=== PATIENT | female | born 1965 | race Caucasian/White ===

== ENCOUNTER 2019-11-09 16:47 | Emergency (ER) | payer SELFPAY ==
[2019-11-09 17:45] VITALS: BP 117/83
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
== END 2019-11-09 18:14 | disposition home health service (06) ==
LOC: UCCORT 16:47
DX: R10.12 Left upper quadrant pain (principal); X50.9XXA Other and unspecified overexertion or strenuous movements or postures, initial encounter; Y93.29 Activity, other involving ice and snow; Y92.9 Unspecified place or not applicable
CPT/HCPCS: 99202; G0463